=== PATIENT | male | born 1995 | race Caucasian/White ===

== ENCOUNTER 2017-07-29 19:36 | Emergency (ER) | payer SELFPAY ==
[~2017-07-29] VITALS: Ht 175.3 cm; Wt 69.8 kg
[2017-07-29 19:57] VITALS: BP 125/81
== END 2017-07-29 20:31 | disposition left against medical advice (07) ==
LOC: ED 20:25
DX: Z53.21 Procedure and treatment not carried out due to patient leaving prior to being seen by health care provider (principal)